=== PATIENT | female | born 1995 | race Caucasian/White ===

== ENCOUNTER 2023-12-16 20:24 | Emergency (ER) | payer SELFPAY ==
[2023-12-16 21:44] VITALS: BP 115/69; PULSE 71
== END 2023-12-16 21:44 | disposition home or self-care (01) ==
LOC: MW.ED 20:24
DX: Z32.02 Encounter for pregnancy test, result negative (principal); Z91.040 Latex allergy status
CPT/HCPCS: 36415; 84703; 99281; 99284

== ENCOUNTER 2024-09-01 06:46 | Emergency (ER) | payer MEDICAID ==
[2024-09-01 07:33] LABS: BASOPHILS ABSOLUTE AUTO 0.02 K/uL (0.00-0.20); BASOPHILS PERCENT AUTO 0.3 % (0.0-1.0); EOSINOPHILS ABSOLUTE AUTO 0.06 K/uL (0.00-0.45); EOSINOPHILS PERCENT AUTO 0.9 % (0.0-6.0); HEMATOCRIT 36.8 % (37.0-47.0); IMMATURE GRAN ABSOLUTE AUTO 0.01 K/uL (0.00-0.05); IMMATURE GRAN PERCENT AUTO 0.2 % (0.0-0.4); LYMPHOCYTES ABSOLUTE AUTO 1.16 K/uL (1.00-4.80); LYMPHOCYTES PERCENT AUTO 18.1 % (24.0-44.0); MEAN CORPUSCULAR HEMOGLOBIN 31.6 pg (28.0-32.0); MEAN CORPUSCULAR HGB CONC 35.3 g/dL (32.0-36.0); MEAN CORPUSCULAR VOLUME 89.5 fL (83.0-99.0); MEAN PLATELET VOLUME 8.8 fL (9.4-12.3); MONOCYTES ABSOLUTE AUTO 0.39 K/uL (0.00-0.80); MONOCYTES PERCENT AUTO 6.1 % (0.0-8.0); NEUTROPHILS ABSOLUTE AUTO 4.77 K/uL (1.80-7.70); NEUTROPHILS PERCENT AUTO 74.4 % (41.0-71.0); PLATELET COUNT,PLT 283 K/uL (150-400); RED BLOOD CELL COUNT 4.11 M/uL (4.10-5.30); WHITE BLOOD CELL COUNT,WBC 6.41 K/uL (3.9-11.3)
[2024-09-01 07:54] LABS: A/G RATIO 1.2 (0.9-1.6); ALBUMIN 3.6 g/dL (3.4-5.0); BILIRUBIN TOTAL 1.2 mg/dL (0.2-1.0); CALCIUM 8.2 mg/dL (8.5-10.1); CARBON DIOXIDE,CO2 25.8 mmol/L (21.0-32.0); CREATININE 0.8 mg/dL (0.6-1.0); EST CRCL DRUG DOSING (CG) 88.79 mL/min; POTASSIUM,K 3.9 mmol/L (3.5-5.1); PROTEIN TOTAL,TP 6.5 g/dL (6.4-8.2)
[2024-09-01 08:29] VITALS: BP 117/69; PULSE 92
== END 2024-09-01 08:33 | disposition home or self-care (01) ==
LOC: MW.ED 06:46
DX: Z71.1 Person with feared health complaint in whom no diagnosis is made (principal); Z91.040 Latex allergy status; Z75.8 Other problems related to medical facilities and other health care
CPT/HCPCS: 36415; 80053; 84478; 85025; 99283